=== PATIENT | female | born 1960 | race African-American/Black ===

== ENCOUNTER 2016-10-15 15:34 | Inpatient (IN) | payer MEDICARE ==
[~2016-10-15] VITALS: Ht 167.6 cm; Wt 73.6 kg
[~2016-10-15 15:34] MED LIST: ATARAX 25 MG TA25 MG PO; CARAFATE1 G PO; DURAGESIC1 PATCH .7 TRANSDERM; FLOVENT HFA 11012 GM INH; GLEEVEC400 MG PO; HYDROCHLOROTH12.5 M1 PO; HYDROCODONE-APA1 TAB PO; JANUVIA25 MG PO; JANUVIA50 MG PO; LYRICA150 MG PO; MUCUS RELIEF400 MG PO; NEURONTIN 300300 MG PO; OMEPRAZOLE20 M1 PO; OXYCONTIN10 MG PO; POTASSIUM99 M1 PO; PROAIR HFA8.5 GM INH; SINGULAIR10 MG PO; TESSALON PERLE100 MG PO; TRAZODONE HCL50 MG PO; VALIUM5 MG PO; ZANAFLEX4 MG PO; ZOFRAN4 MG PO
--- NOTE | 2016-10-15 17:00 | NUR ---
IV STARTED AT THIS TIME IN RIGHT HAND X 3 STICKS. PATIENT TOLERATED WITH SMALL AMOUNT OF PAIN. FAMILY AT BEDSIDE. CALL LIGHT WITHIN REACH.
[2016-10-15 17:57] VITALS: BP 90/45; Ht 167.6 cm; Wt 73.6 kg
--- NOTE | 2016-10-15 18:45 | NUR ---
PATIENT IN BED WITH NO COMPLAINTS. WAITING FOR BLOOD FROM BLD BANK. IV INTACT. FAMILY AT BEDSIDE. CALL LIGHT WITHIN REACH.
[2016-10-15 22:25] VITALS: BP 88/54
[2016-10-15 22:45] VITALS: BP 85/61
[2016-10-15 23:00] VITALS: BP 88/53
[2016-10-15 23:15] VITALS: BP 89/57
[2016-10-15 23:30] VITALS: BP 90/61
--- NOTE | 2016-10-15 23:51 | NUR ---
ASSESSED AT THE BEGINNING OF THE SHIFT. PT IS ALERT AND ORIENTED, ABLE TO VERBALIZE NEEDS. HER FAMILY CAME TO VISIT HER FOR A SHORT TIME AND THEN WE WERE ABLE TO PREMEDICATE HER FOR BLOOD TRANSFUSION WITH SOME OF HER HOME MEDS WHICH THE MD HAD OKED TO HELP HER REST IN THE HOSPITAL. SHE IS ABLE TO GET UP TO THE BATHROOM WITH ASSIST AND OF THIS TIME HER TRANSFUSION HAS GONE WELL WITH NO SIGNS OF REACTION. SHE IS RUNNING A LOW BP BUT STATES IT WAS EVEN LOWER IN THE DOCTORS OFFFICE. THE BED IS LOW, RIALS UP X'S 2 WITH THE CALL LIGHT AT HAND.
[2016-10-16] VITALS (12 sets, daily range): BP systolic 85–92; BP diastolic 53–69
[2016-10-16 08:43] LABS: BASOPHILS 0.8 % (0.0-2.0); EOSINOPHILS 1.6 % (0-7); HEMATOCRIT 36.9 % (36.0-48.0); HEMOGLOBIN 12.5 g/dL (12-16); IMMATURE GRANULOCYTES 0.4 % (0-5); LYMPHOCYTES 25.8 % (15-50); MCH 33.1 pg (26.0-34.0); MCHC 33.9 g/dL (31.0-37.0); MCV 97.6 fL (80.0-100.0); MONOCYTES 7.4 % (2-11); PLATELET COUNT 213 10x3/uL (130-400); RBC 3.78 10x6/uL (4.00-5.40); RDW 22.9 % (11.5-14.5); WBC 5.1 10x3/uL (4.8-10.8)
[2016-10-16 08:56] LABS: ALBUMIN 1.2 g/dL (3.4-5.0); BILIRUBIN - TOTAL 0.36 mg/dL (0.2-1.3); CALCIUM 7.2 mg/dL (8.5-10.1); CARBON DIOXIDE 28.3 mmol/L (21.0-32.0); CREATININE - SERUM 2.2 mg/dL (0.6-1.3); PROTEIN - SERUM 3.7 g/dL (6.4-8.2)
[2016-10-16 08:57] LABS: ANION GAP 9.7 mmol/L (8-16)
--- NOTE | 2016-10-16 09:13 | NUR ---
SPOKE WITH PHYSICIAN ABOUT HOME MEDS. AND PATIENT BEING DISCHARGED. STATED HE WOULD COME SPEAK WITH HER. PATIENT VERBALIZED UNDERSTANDING.
--- NOTE | 2016-10-16 11:31 | NUR ---
PATIENT IV REMOVED WITH CATH TIP INTACT. DISCHARGE INSTRUCTIONS GIVEN TO PATIENT. NO QUESTIONS AT THIS TIME. VERBALIZED UNDERSTANDING. AWAITING FAMILY FOR TRANSPORTATION. CALL LIGHT WITHIN REACH.
== END 2016-10-16 13:42 | disposition home or self-care (01) | DRG 812 ==
LOC: D.MS 15:34
PROVIDERS: ADMIT Legal Medicine
DX: D64.9 Anemia, unspecified (principal); C78.02 Secondary malignant neoplasm of left lung; C78.01 Secondary malignant neoplasm of right lung; R60.1 Generalized edema; C11.1 Malignant neoplasm of posterior wall of nasopharynx

== ENCOUNTER → 2017-04-21 10:12 | Outpatient (CLI) | payer MEDICARE ==
[2016-10-15 17:57] VITALS: BMI 26.2
== END | disposition home or self-care (01) ==
LOC: D.CT 02-10 14:30
DX: C11.9 Malignant neoplasm of nasopharynx, unspecified (principal)

== ENCOUNTER → 2017-09-27 13:24 | Outpatient (CLI) | payer MEDICARE ==
[2016-10-15 17:57] VITALS: BMI 26.2
== END | disposition home or self-care (01) ==
LOC: D.CT 08:00
DX: C11.9 Malignant neoplasm of nasopharynx, unspecified (principal)

== ENCOUNTER 2017-12-07 05:49 | Outpatient (CLI) | payer MEDICARE ==
[~2017-12-07] VITALS: Ht 167.6 cm; Wt 71.4 kg
[2017-12-07 06:13] LABS: EOSINOPHILS 6.2 % (0-7); HEMATOCRIT 42.2 % (36.0-48.0); HEMOGLOBIN 13.7 g/dL (12-16); IMMATURE GRANULOCYTES 0.3 % (0-5); LYMPHOCYTES 24.3 % (15-50); MCH 30.5 pg (26.0-34.0); MCHC 32.5 g/dL (31.0-37.0); MEAN PLATELET VOLUME 12.3 fL (7.4-10.4); MONOCYTES 9.9 % (2-11); NEUTROPHILS 58.3 % (40-80); PLATELET COUNT 229 10x3/uL (130-400); RBC 4.49 10x6/uL (4.00-5.40); RDW 13.3 % (11.5-14.5); WBC 6.2 10x3/uL (4.8-10.8)
[2017-12-07 06:42] LABS: APTT 29.7 SECONDS (22.8-39.4); INR 1.05 (0.85-1.17); PROTIME 13.3 SECONDS (11.6-15.0)
[2017-12-07 07:13] VITALS: BP 162/87; Ht 167.6 cm; Wt 71.4 kg
[2017-12-07 07:31] LABS: ANION GAP 10.8 mmol/L (8-16); CALCIUM 9.7 mg/dL (8.5-10.1); CARBON DIOXIDE 29.3 mmol/L (21.0-32.0); CREATININE - SERUM 1.8 mg/dL (0.6-1.3); POTASSIUM - SERUM 4.1 mmol/L (3.5-5.1)
== END 2017-12-07 10:00 | disposition home or self-care (01) ==
LOC: D.SP 05:49 → D.CT 08:00 → D.SP 08:00 → D.CT 12-08 13:00
PROVIDERS: Radiology Diagnostic Radiology
DX: K82.8 Other specified diseases of gallbladder (principal); K21.9 Gastro-esophageal reflux disease without esophagitis; C34.90 Malignant neoplasm of unspecified part of unspecified bronchus or lung; Z01.810 Encounter for preprocedural cardiovascular examination; Z01.812 Encounter for preprocedural laboratory examination; Z01.811 Encounter for preprocedural respiratory examination; Z53.9 Procedure and treatment not carried out, unspecified reason

== ENCOUNTER 2017-12-23 09:44 | Outpatient (CLI) | payer MEDICARE ==
[~2017-12-23] VITALS: Ht 167.6 cm; Wt 72.7 kg
[2017-12-23 10:38] LABS: BASOPHILS 0.7 % (0-2); HEMATOCRIT 40.5 % (36.0-48.0); HEMOGLOBIN 13.1 g/dL (12-16); IMMATURE GRANULOCYTES 0.2 % (0-5); LYMPHOCYTES 26.6 % (15-50); MCH 30.8 pg (26.0-34.0); MCHC 32.3 g/dL (31.0-37.0); MCV 95.3 fL (80.0-100.0); MEAN PLATELET VOLUME 11.5 fL (7.4-10.4); MONOCYTES 10.1 % (2-11); NEUTROPHILS 53.4 % (40-80); PLATELET COUNT 204 10x3/uL (130-400); RBC 4.25 10x6/uL (4.00-5.40); RDW 13.7 % (11.5-14.5); WBC 5.5 10x3/uL (4.8-10.8)
[2017-12-23 10:50] LABS: APTT 30.8 SECONDS (22.8-39.4); INR 1.11 (0.85-1.17); PROTIME 13.9 SECONDS (11.6-15.0)
[2017-12-23 10:56] LABS: ANION GAP 10.8 mmol/L (8-16); CALCIUM 9.7 mg/dL (8.5-10.1); CARBON DIOXIDE 31.2 mmol/L (21.0-32.0); CREATININE - SERUM 1.7 mg/dL (0.6-1.3)
[2017-12-23] MEDS ORDERED: LYRICA100 MG PO (11:32)
[2017-12-23 11:35] VITALS: BP 183/98; Ht 167.6 cm; Wt 72.7 kg
== END 2017-12-23 13:50 | disposition home or self-care (01) ==
LOC: D.SP 09:44 → D.CT 11:00 → D.SP 13:50
PROVIDERS: General Practice
DX: M48.8X4 Other specified spondylopathies, thoracic region (principal); Z85.118 Personal history of other malignant neoplasm of bronchus and lung; Z85.22 Personal history of malignant neoplasm of nasal cavities, middle ear, and accessory sinuses

== ENCOUNTER 2018-12-18 15:25 | Inpatient (IN) | payer MEDICARE, MEDICAID ==
[~2018-12-18 15:25] MED LIST changes: +LYRICA100 MG PO
[2018-12-18 17:17] LABS: BASOPHILS 0.9 % (0-2); EOSINOPHILS 3.5 % (0-7); HEMATOCRIT 32.1 % (36.0-48.0); HEMOGLOBIN 10.5 g/dL (12-16); IMMATURE GRANULOCYTES 0.2 % (0-5); LYMPHOCYTES 15.3 % (15-50); MCH 33.7 pg (26.0-34.0); MCHC 32.7 g/dL (31.0-37.0); MCV 102.9 fL (80.0-100.0); MEAN PLATELET VOLUME 10.9 fL (7.4-10.4); MONOCYTES 7.2 % (2-11); NEUTROPHILS 72.9 % (40-80); PLATELET COUNT 243 10x3/uL (130-400); RBC 3.12 10x6/uL (4.00-5.40); RDW 15.4 % (11.5-14.5); WBC 4.6 10x3/uL (4.8-10.8)
--- NOTE | 2018-12-18 17:30 | NUR ---
PATIENT AWAKE AND ALERT, COLOR IS PALE. RESPIRATIONS EVEN AND UNLABORED. C/O OF PAIN IN THE RIGHT RIB AREA. STATES THE PAIN IS WORSE WITH MOVEMENT AND TOUCH. UPDATED ON PLAN OF CARE AND DELAYS IN CARE. WILL CONTINUE TO MONITOR.
[2018-12-18 17:31] LABS: ALBUMIN 2.9 g/dL (3.4-5.0); ALKALINE PHOSPHATASE 74 U/L (46-116); ALT (SGPT) 16 U/L (10-68); BILIRUBIN - TOTAL 0.49 mg/dL (0.2-1.3); CALC OSMOLALITY 281 mosm/kg (275-300); CALCIUM 8.5 mg/dL (8.5-10.1); CARBON DIOXIDE 25.9 mmol/L (21.0-32.0); CHLORIDE - SERUM 106 mmol/L (98-107); CREATININE - SERUM 1.7 mg/dL (0.6-1.3); GLUCOSE 91 mg/dL (74-106); POTASSIUM - SERUM 4.2 mmol/L (3.5-5.1); PROTEIN - SERUM 6.5 g/dL (6.4-8.2); SODIUM 141 mmol/L (136-145); UREA NITROGEN 14 mg/dL (7-18); eGFR NON AFRICAN AMERICAN 33 mL/min (90-120)
[2018-12-18 17:42] LABS: CKMB 2.7 U/L (0.0-3.6); CREATINE KINASE 402 UL (21-215); MAGNESIUM - SERUM 1.6 mg/dL (1.8-2.4); PRO BNP 396 pg/mL (0-125)
[2018-12-18 17:44] LABS: TROPONIN-I < 0.017 ng/mL (0.000-0.060)
--- NOTE | 2018-12-18 18:30 | NUR ---
PATIENT AWAKE AND ALERT. BLANKET GIVEN. NO OTHER NEEDS NOTED. UPDATED ON PLAN OF CARE AND DELAYS IN CARE. WILL CONTINUE TO MONITOR.
[2018-12-18 18:41] VITALS: BP 174/92
--- NOTE | 2018-12-18 19:21 | NUR ---
PT ALERT. FAMILY AT BEDSIDE. STATES "DOING OK RIGHT NOW".
--- NOTE | 2018-12-18 19:40 | NUR ---
UP TO BEDSIDE COMMODE. VOIDED WITHOUT DIFFICULTY. STATES HASN'T HAD AN UPDRAFT SINCE THIS MORNING. RESPIRATORY THERAPY PAGED.
--- NOTE | 2018-12-18 19:48 | NUR ---
PT'S PULSE OX 86%. STATES USUALLY WEARS OXYGEN PRN AT HOME. O2 AT 2LN/C APPLIED.
[2018-12-18 19:51] VITALS: BP 169/87
--- NOTE | 2018-12-18 19:57 | NUR ---
pt's pulse ox up to 96-97 on oxygen 2l.
--- NOTE | 2018-12-18 20:27 | NUR ---
ARRIVED FROM ER VIA . PT CO BEING VERY COLD. WARM BLANKET APPLIED. O2 ON AT 2L. NC. SEE ASSESSMENT FOR FURTHER EVAL.
[2018-12-18 20:29] VITALS: BP 153/69; BMI 24.1
--- NOTE | 2018-12-18 23:46 | NUR ---
EVENING ROUNDS COMPLETED. PT SITTING UP IN BED WITH EYES OPEN, RR EVEN AND UNLABORED. NIGHT TIME MEDICATIONS ADMINISTERED WITHOUT ISSUE. NO S/S OF DISTRESS NOTED. PT STATES PAIN IS UNDER CONTROL AT THIS TIME. CALL LIGHT IN REACH. WILL CTM.
[2018-12-19] VITALS: BP 158/78
[2018-12-19 04:00] VITALS: BP 135/70
--- NOTE | 2018-12-19 04:00 | NUR ---
I have reviewed this patient and I concur with the Shift Assessment completed by the Licensed Practical Nurse today this shift.
[2018-12-19 05:38] LABS: BASOPHILS 0.4 % (0-2); EOSINOPHILS 4.4 % (0-7); HEMATOCRIT 33.6 % (36.0-48.0); HEMOGLOBIN 11.1 g/dL (12-16); IMMATURE GRANULOCYTES 0.2 % (0-5); LYMPHOCYTES 15.6 % (15-50); MCH 33.6 pg (26.0-34.0); MCV 101.8 fL (80.0-100.0); MEAN PLATELET VOLUME 11.4 fL (7.4-10.4); MONOCYTES 8.2 % (2-11); NEUTROPHILS 71.2 % (40-80); PLATELET COUNT 281 10x3/uL (130-400); RDW 15.6 % (11.5-14.5); WBC 5.6 10x3/uL (4.8-10.8)
[2018-12-19 06:03] LABS: ANION GAP 12.4 mmol/L (8-16); CALCIUM 8.6 mg/dL (8.5-10.1); CARBON DIOXIDE 27.8 mmol/L (21.0-32.0); CREATININE - SERUM 1.7 mg/dL (0.6-1.3); POTASSIUM - SERUM 4.2 mmol/L (3.5-5.1)
[2018-12-19 08:00] VITALS: BP 121/66
[2018-12-19 12:12] VITALS: BP 116/64
[2018-12-19 13:13] VITALS: BMI 24.0
[2018-12-19 16:24] VITALS: BP 112/61
[2018-12-19 20:00] VITALS: BP 111/48
--- NOTE | 2018-12-19 20:00 | NUR ---
EVENING ROUNDS COMPLETED. VSS, AAOX4, NO S/S OF RESP DISTRESS. PT C/O FEELING COLD. TURNED PT ROOM TEMP UP AND PROVIDED WARM BLANKET. PT DENIES ANY FURTHER NEED AT THIS TIME. WILL CPOC. CL WITHIN REACH, BED IN LOW, SR UP X2.
[2018-12-20 04:00] VITALS: BP 116/46
[2018-12-20 06:31] LABS: BASOPHILS 0.4 % (0-2); EOSINOPHILS 2.1 % (0-7); HEMATOCRIT 28.2 % (36.0-48.0); HEMOGLOBIN 9.2 g/dL (12-16); IMMATURE GRANULOCYTES 0.2 % (0-5); LYMPHOCYTES 9.6 % (15-50); MCH 33.6 pg (26.0-34.0); MCHC 32.6 g/dL (31.0-37.0); MCV 102.9 fL (80.0-100.0); MEAN PLATELET VOLUME 11.4 fL (7.4-10.4); MONOCYTES 8.3 % (2-11); NEUTROPHILS 79.4 % (40-80); PLATELET COUNT 240 10x3/uL (130-400); RBC 2.74 10x6/uL (4.00-5.40); RDW 15.5 % (11.5-14.5); WBC 5.3 10x3/uL (4.8-10.8)
[2018-12-20 07:06] LABS: ANION GAP 11.2 mmol/L (8-16); CALCIUM 8.7 mg/dL (8.5-10.1); CARBON DIOXIDE 27.6 mmol/L (21.0-32.0); CREATININE - SERUM 1.7 mg/dL (0.6-1.3); POTASSIUM - SERUM 3.8 mmol/L (3.5-5.1); THYROID STIMULATING HORMONE 2.04 uIU/mL (0.36-3.74)
[2018-12-20 08:15] VITALS: BP 122/60
[2018-12-20 11:48] VITALS: BP 111/60
[2018-12-20 15:09] VITALS: BP 95/54
--- NOTE | 2018-12-20 19:22 | NUR ---
PT RESTING IN BED. PT IS AAO, UP AD ABDON. GAIT STEADY. ASKING FOR A HEAT PAD AND PT RECEIVED. PT HAS NO S/S OF DISTRESS. 2L O2 NC, BEDLOW AND CALL LIGHT IN REACH. WILL CPOC
[2018-12-20 20:00] VITALS: BP 113/66
--- NOTE | 2018-12-20 21:51 | NUR ---
NIGHT MEDICATIONS GIVEN. PT ASKING ABOUT MUCINEX. WILL CHECK ORDERS. PT COMPLAINS OF PAIN IN LEFT SIDE. STATES THE HEAT PACK HELPED BUT NEEDS A NORCO. NORCO GIVEN. PT DENIES ANY OTHER NEEDS. NO S/S OF DISTRESS. WILL CPOC
--- NOTE | 2018-12-21 02:40 | NUR ---
PT COMPLAINS OF PAIN ON INNER EYE AND OUTER EYE. STATES IT IS TENDER TO TOUCH. REQUEST NORCO FOR 10/10 PAIN. NORCO GIVEN. PT DENIES ANY OTHER NEEDS. WILL CPOC
--- NOTE | 2018-12-21 02:45 | NUR ---
NURSE DROPPED TORICO ON FLOOR. WASTED MEDICATION AND PULLED A NEW ONE.
[2018-12-21 04:00] VITALS: BP 116/70
--- NOTE | 2018-12-21 07:06 | NUR ---
PT SITTING UP GETTING BREATHING TREATMENT. PT ASKING FOR NORCO. NORCO RECEIVED. PT HAS NO S/S OF DISTRESS. BEDLOW AND CALL LIGHT IN REACH. WILL CPOC
--- NOTE | 2018-12-21 07:27 | NUR ---
ALERT AND ORIENTED X4. SITTING UP IN BED. EXPLAIN PLAN TO TRANSFER TO [facility] PER CHOCOLATE FINISHER. PATIENT STATES, "I'M NOT TRANSFERING ANYWHERE UNTIL I GO HOME." NOTIFY FITO CHOCOLATE FINISHER. DENIES ANY NEEDS AT THIS TIME. CONTINUE PLAN OF CARE AND SAFETY PRECAUTIONS.
[2018-12-21 08:39] VITALS: BP 94/48
[2018-12-21 10:07] LABS: BASOPHILS 0.6 % (0-2); EOSINOPHILS 3.1 % (0-7); HEMATOCRIT 27.7 % (36.0-48.0); HEMOGLOBIN 8.9 g/dL (12-16); LYMPHOCYTES 20.8 % (15-50); MCH 33.2 pg (26.0-34.0); MCHC 32.1 g/dL (31.0-37.0); MCV 103.4 fL (80.0-100.0); MEAN PLATELET VOLUME 10.9 fL (7.4-10.4); MONOCYTES 14.4 % (2-11); NEUTROPHILS 61.1 % (40-80); RBC 2.68 10x6/uL (4.00-5.40); RDW 15.5 % (11.5-14.5)
[2018-12-21 10:09] LABS: PLATELET COUNT 180 10x3/uL (130-400); WBC 3.3 10x3/uL (4.8-10.8)
[2018-12-21 10:15] LABS: ANION GAP 10.5 mmol/L (8-16); CALCIUM 8.3 mg/dL (8.5-10.1); CARBON DIOXIDE 30.1 mmol/L (21.0-32.0); CREATININE - SERUM 1.7 mg/dL (0.6-1.3); POTASSIUM - SERUM 3.6 mmol/L (3.5-5.1)
[2018-12-21 11:40] VITALS: BP 99/54
--- NOTE | 2018-12-21 14:30 | NUR ---
Nutrition follow-up: Diet: Regular PO intake ~60% average of last 6 meals labs reviewed Wt: 149# RDN following.
--- NOTE | 2018-12-21 16:49 | NUR ---
SITTING UP IN BED. ALERT AND ORIENTED X4. DENIES PAIN OR SOB. REPORTS FEELING SORE WHEN STRETCHING. ENCOURAGE GETTING OUT OF BED MORE. DENIES ANY NEEDS AT THIS TIME. FRESH ICE WATER PROVIDED. CONTINUE PLAN OF CARE AND SAFETY PRECAUTIONS.
--- NOTE | 2018-12-21 18:19 | NUR ---
ALERT AND ORIENTED X4. UP OOB TAKING SHOWER. LINEN CHANGE COMPLETE. DENIES ANY NEEDS. CONTINUE PLAN OF CARE AND SAFETY PRECAUTIONS.
[2018-12-21 18:36] VITALS: BP 94/51
--- NOTE | 2018-12-21 19:20 | NUR ---
ANSWERED PATIENT CALL LIGHT. PATIENT ALERT AND ORIENTED. REQUESTED PM MEDICINE AT THIS TIME. PT STATES SHE IS TIRED AND READY TO GO TO BED. PT WEARING 2L O2. RIGHT HAND IV THAT IS CURRENTLY SALINE LOCKED. COMPLAINS OF PAIN IN BACK. PT REQUESTS PAIN MEDICINE AT THIS TIME. NO OTHER NEEDS DISCUSSED AT THIS TIME. PATIENT HAS CALL LIGHT IN HAND.
[2018-12-21 20:00] VITALS: BP 110/56
[2018-12-22 04:00] VITALS: BP 112/60
--- NOTE | 2018-12-22 04:04 | NUR ---
I have reviewed this patient and I concur with the Shift Assessment completed by the Licensed Practical Nurse today this shift.
[2018-12-22 06:44] LABS: BASOPHILS 0 % (0-2); EOSINOPHILS 3.4 % (0-7); HEMATOCRIT 27.8 % (36.0-48.0); HEMOGLOBIN 9.1 g/dL (12-16); LYMPHOCYTES 27.6 % (15-50); MCH 33.5 pg (26.0-34.0); MCHC 32.7 g/dL (31.0-37.0); MCV 102.2 fL (80.0-100.0); MEAN PLATELET VOLUME 11.1 fL (7.4-10.4); MONOCYTES 14.2 % (2-11); NEUTROPHILS 54.8 % (40-80); RBC 2.72 10x6/uL (4.00-5.40); RDW 15.4 % (11.5-14.5); WBC 3.2 10x3/uL (4.8-10.8)
[2018-12-22 06:54] LABS: PLATELET COUNT 223 10x3/uL (130-400)
[2018-12-22 07:15] LABS: ANION GAP 9.2 mmol/L (8-16); CALCIUM 8.4 mg/dL (8.5-10.1); CARBON DIOXIDE 29.5 mmol/L (21.0-32.0); CREATININE - SERUM 1.6 mg/dL (0.6-1.3); POTASSIUM - SERUM 3.7 mmol/L (3.5-5.1)
[2018-12-22] MEDS ORDERED: LEVOFLOXAC500 MG/100 PO (07:59)
--- NOTE | 2018-12-22 08:00 | NUR ---
RESUMING PT CARE, PT IS SITTING UP IN BED ALERT AND ORIENTED X3. CALL LIGHT IN REACH, WILL CONTINUE TO MONITOR AND FOLLOW PLAN OF CARE.
[2018-12-22 08:10] VITALS: BP 122/69
--- NOTE | 2018-12-22 09:10 | NUR ---
PT IS BEING D/C TODAY, LAST DOSE OF ABX WAS TO BE GIVEN BUT PT'S IV INFILTRATED, PT REFUSES ANOTHER IV. SPOKE WITH SONYA FLORES AND HE SAID IT IS FINE TO NOT GIVE THIS MEDICATION.
[2018-12-22 11:37] VITALS: BP 128/72
--- NOTE | 2018-12-22 13:18 | MORECARE ---
CASE MANAGEMENT DISCHARGE SUMMARY PATIENT: JACKIE DOUGLAS UNIT: [id number] ADM DATE: 12/18/18 AGE: 58 : 60 SEX: F ROOM/BED: D.1667 AUTHOR: LYNNE,DOC PHYSICIAN: REFERRING PHYSICIAN: FILIPE MCCLELLAND MD DATE OF SERVICE: 12/22/18 Discharge Plan Patient Name: JACKIE DOUGLAS Facility: [facility]:[place] : 1960 Planned Disposition: Home Anticipated Discharge Date: 12/22/18 Discharge Date: Expected LOS: 4 Initial Reviewer: [email or web address] Initial Review Date: 12/22/2018 Generated: 12/22/18 2:18 pm Comments DCP- Discharge Planning Updated by [email or web address]: Isidro Lion on 12/22/18 12:[address] Patient Name: JACKIE DOUGLAS Encounter No: [id number] : 1960 Primary Insurance: [facility] MEDICARE SOLUTIONS Anticipated DC Date: 12-22-2018 Planned Disposition: Home DISCHARGE PLANNING NOTE: CM MET WITH PT IN ROOM TO DISCUSS DISCHARGE PLANNING AND NEEDS. PT REPORTS LIVING AT HOME INDEPENDENTLY WITH HER MOTHER. PT HAS HOME AND PORTABLE OXYGEN WELL NEBULIZER FROM [facility]. PT HAS NO OUTSIDE SERVICES ASSISTING IN THE HOME. CM DISCUSSED AVAILABILITY OF HOME HEALTH, REHAB SERVICES AND MEDICAL EQUIPMENT. PT DENIES DISCHARGE NEEDS, REPORTS HER SPOUSE WILL PICK HER UP FOR DISCHARGE HOME. IMPORTANT MESSAGE FROM MEDICARE PROVIDED AND EXPLAINED. ANTWAN Simmons DCPIA - Discharge Planning Initial Assessment Updated by [id number]: Isidro Lion on 12/22/18 1:13 pm * Is the patient Alert and Oriented? Yes * How many steps to enter\exit or inside your home? NONE * PCP DR. SMITH IN [place] * Pharmacy [facility] IN [place] * Preadmission Environment Home with Family * ADLs Independent * Equipment Nebulizer Oxygen * Other Equipment HOME AND PORTABLE OXYGEN [facility]. * List name and contact numbers for known caregivers / representatives who currently or will assist patient after discharge: KISHOR DOUGLAS, SPOUSE, * Verbal permission to speak to the caregivers and representatives has been obtained from the patient. N/A * Community resources currently utilized None * Please name any agencies selected above. NONE * Additional services required to return to the preadmission environment? No * Can the patient safely return to the preadmission environment? Yes * Has this patient been hospitalized within the prior 30 days at any hospital? No Patient Name: JACKIE DOUGLAS Page [phone] at 1318 All edits/amendments must be made on the electronic document DICTATION DATE: 12/22/181317 EXECUTIVE DIRECTOR GLOBAL BRAND MARKETING: CYDNEY 12/22/188 RPT#: [id number] DC DATE: STATUS: ADM IN [facility] [address] [place] [address] END OF REPORT
--- NOTE | 2018-12-22 14:21 | NUR ---
D/C INSTRUCTIONS GIVEN TO PT, IV REMOVED FROM RIGHT HAND. PT TAKEN TO CAR VIA WHEELCHAIR.
== END 2018-12-22 14:32 | disposition home or self-care (01) | DRG 146 ==
LOC: D.ER 15:25 → D.M2 19:29
PROVIDERS: Family Medicine; ADMIT Emergency Medicine; ATTEND Emergency Medicine
DX: C11.9 Malignant neoplasm of nasopharynx, unspecified (principal); J18.9 Pneumonia, unspecified organism; J90 Pleural effusion, not elsewhere classified; J91.0 Malignant pleural effusion; R07.9 Chest pain, unspecified; D53.9 Nutritional anemia, unspecified; K59.00 Constipation, unspecified

== ENCOUNTER 2019-01-24 23:23 | Emergency (ER) | payer MEDICARE, MEDICAID ==
[~2019-01-24] VITALS: Ht 167.6 cm; Wt 61.8 kg
[~2019-01-24 23:23] MED LIST changes: +LEVOFLOXAC500 MG/100 PO
[2019-01-24 23:34] VITALS: Ht 167.6 cm; Wt 61.8 kg
[2019-01-25 00:42] LABS: BASOPHILS 0.6 % (0-2); EOSINOPHILS 1.9 % (0-7); HEMATOCRIT 33.6 % (36.0-48.0); HEMOGLOBIN 11.5 g/dL (12-16); LYMPHOCYTES 25.4 % (15-50); MCH 35.5 pg (26.0-34.0); MCHC 34.2 g/dL (31.0-37.0); MCV 103.7 fL (80.0-100.0); MEAN PLATELET VOLUME 11.3 fL (7.4-10.4); MONOCYTES 6.9 % (2-11); NEUTROPHILS 65.2 % (40-80); PLATELET COUNT 230 10x3/uL (130-400); RBC 3.24 10x6/uL (4.00-5.40); RDW 15.7 % (11.5-14.5); WBC 4.7 10x3/uL (4.8-10.8)
[2019-01-25 00:49] LABS: APTT 31.3 SECONDS (22.8-39.4); INR 1.08 (0.85-1.17); PROTIME 13.5 SECONDS (11.6-15.0)
[2019-01-25 00:52] LABS: ALBUMIN 3.2 g/dL (3.4-5.0); ALKALINE PHOSPHATASE 68 U/L (46-116); ALT (SGPT) 17 U/L (10-68); CALC OSMOLALITY 280 mosm/kg (275-300); CALCIUM 8.2 mg/dL (8.5-10.1); CARBON DIOXIDE 24.2 mmol/L (21.0-32.0); CHLORIDE - SERUM 109 mmol/L (98-107); CREATININE - SERUM 1.6 mg/dL (0.6-1.3); POTASSIUM - SERUM 4.4 mmol/L (3.5-5.1); PROTEIN - SERUM 6.9 g/dL (6.4-8.2); SODIUM 141 mmol/L (136-145); UREA NITROGEN 9 mg/dL (7-18); eGFR NON AFRICAN AMERICAN 35 mL/min (90-120)
[2019-01-25 01:03] LABS: GLUCOSE 121 mg/dL (74-106)
[2019-01-25 01:07] LABS: CKMB 2.6 U/L (0.0-3.6); CREATINE KINASE 361 UL (21-215); TROPONIN-I 0.027 ng/mL (0.000-0.060)
[2019-01-25 02:27] LABS: APPEARANCE HAZY (CLEAR); BILIRUBIN NEGATIVE (NEGATIVE); COLOR YELLOW (YELLOW); GLUCOSE 50 mg/dL (NEGATIVE); KETONE SMALL mg/dL (NEGATIVE); NITRITE NEGATIVE (NEGATIVE); PROTEIN 2+ mg/dL (NEGATIVE); UROBILINOGEN NORMAL (NORMAL)
[2019-01-25 02:28] LABS: BACTERIA MODERATE /hpf (NONE SEEN); EPITHELIAL CELLS 0-5 /hpf (0-5); RED CELLS - URINE 0-5 /hpf (0-5)
[2019-01-25 02:42] VITALS: BP 135/74
== END 2019-01-25 02:43 | disposition home or self-care (01) ==
LOC: D.ER 23:23
PROVIDERS: Emergency Medicine
DX: R06.00 Dyspnea, unspecified (principal)

== ENCOUNTER 2019-03-09 21:18 | Observation (INO) | payer MEDICARE, MEDICAID ==
[~2019-03-09] VITALS: Ht 167.6 cm; Wt 63.5 kg
[2019-03-09 22:12] LABS: BASOPHILS 1.5 % (0-2); EOSINOPHILS 3.1 % (0-7); HEMATOCRIT 28.7 % (36.0-48.0); HEMOGLOBIN 9.7 g/dL (12-16); IMMATURE GRANULOCYTES 0.3 % (0-5); LYMPHOCYTES 17.6 % (15-50); MCH 35.7 pg (26.0-34.0); MCHC 33.8 g/dL (31.0-37.0); MCV 105.5 fL (80.0-100.0); MEAN PLATELET VOLUME 11.2 fL (7.4-10.4); MONOCYTES 8.4 % (2-11); NEUTROPHILS 69.1 % (40-80); PLATELET COUNT 192 10x3/uL (130-400); RBC 2.72 10x6/uL (4.00-5.40); RDW 15.4 % (11.5-14.5); WBC 3.9 10x3/uL (4.8-10.8)
[2019-03-09 22:29] LABS: ALBUMIN 2.8 g/dL (3.4-5.0); ALKALINE PHOSPHATASE 62 U/L (46-116); ALT (SGPT) 20 U/L (10-68); BILIRUBIN - TOTAL 0.36 mg/dL (0.2-1.3); CALC OSMOLALITY 282 mosm/kg (275-300); CALCIUM 8.7 mg/dL (8.5-10.1); CHLORIDE - SERUM 106 mmol/L (98-107); CREATININE - SERUM 1.6 mg/dL (0.6-1.3); GLUCOSE 117 mg/dL (74-106); POTASSIUM - SERUM 4.9 mmol/L (3.5-5.1); PROTEIN - SERUM 6.1 g/dL (6.4-8.2); SODIUM 142 mmol/L (136-145); UREA NITROGEN 10 mg/dL (7-18); eGFR NON AFRICAN AMERICAN 35 mL/min (90-120)
[2019-03-09 22:38] LABS: CKMB 2.9 U/L (0.0-3.6); CREATINE KINASE 485 UL (21-215); TROPONIN-I 0.033 ng/mL (0.000-0.060)
[2019-03-10] VITALS (11 sets, daily range): BP systolic 104–172; BP diastolic 50–87; Ht 167.6 cm; Wt 63.5 kg
--- NOTE | 2019-03-10 00:45 | NUR ---
RECEIVED PATIENT FROM MONICA ELAM VIA STRETCHER. PATIENT WALKED TO BED FROM STRETCHER AND WAS EXPERIENCING SOME SHORTNESS OF BREATH. PATIENT O2 WAS 86, 3L O2 VIA NC WAS APPLIED BY MONICA HUNTER. PATIENT C/O BEING COLD, TEMP IN ROOM ADJUSTED. QUICK START, MED REC, ADULT HX, SUICIDE SCREENING COMPLETED. CL IN REACH, BED LOCKED AND LOWERED. WILL CTM.
--- NOTE | 2019-03-10 06:59 | NUR ---
REPORT RECEIVED FROM OCEANOGRAPHY PROFESSOR AND PATIENT CARE ASSUMED. PATIENT LAYING IN BED ON BACK WITH EYES CLOSED AND BREATHING EVENLY. WILL CONTINUE WITH PLAN OF CARE. SR UP X 2 BED IN LOW POSITION AND CALL LIGHT IN REACH.
[2019-03-10 09:55] LABS: BASOPHILS 0.9 % (0-2); HEMOGLOBIN 9.6 g/dL (12-16); IMMATURE GRANULOCYTES 0.3 % (0-5); MCH 35.7 pg (26.0-34.0); MCHC 34.3 g/dL (31.0-37.0); MCV 104.1 fL (80.0-100.0); MONOCYTES 10.3 % (2-11); NEUTROPHILS 59.5 % (40-80); PLATELET COUNT 210 10x3/uL (130-400); RBC 2.69 10x6/uL (4.00-5.40); RDW 15.2 % (11.5-14.5); WBC 3.2 10x3/uL (4.8-10.8)
[2019-03-10 10:04] LABS: ANION GAP 8.5 mmol/L (8-16); CALCIUM 8.1 mg/dL (8.5-10.1); CARBON DIOXIDE 30.6 mmol/L (21.0-32.0); CREATININE - SERUM 1.6 mg/dL (0.6-1.3)
[2019-03-10 10:05] LABS: APTT 29.7 SECONDS (22.8-39.4); INR 1.1 (0.85-1.17); POTASSIUM - SERUM 4.1 mmol/L (3.5-5.1); PROTIME 13.7 SECONDS (11.6-15.0)
--- NOTE | 2019-03-10 19:15 | NUR ---
EVENING ROUNDS MADE, WILL CONTINUE POC. PATIENT IS A/OX4 UP AD ABDON. NO S/S OF DISTRESS NOTED. RR EVEN AND UNLABORED ON ROOM AIR, 3L O2 VIA NC PRN. IV TO RT WRIST, PATENT, SL, DRSG C/D/I. PATIENT REQUESTED SUPPLIES FOR A SPONGE BATH, SUPPLIES GIVEN. DRESSING TO RT FLANK SOILDED, DRSG CHANGED, PRESSURE DRESSING WITH MEPILEX APPLIED. PATIENT DENIES FURTHER NEEDS AT THIS TIME. CL IN REACH, BED LOCKED AND LOWERED. WILL CTM.
--- NOTE | 2019-03-11 00:31 | NUR ---
I have reviewed this patient and I concur with the Shift Assessment completed by the Licensed Practical Nurse today this shift.
[2019-03-11 00:46] VITALS: BP 125/70
--- NOTE | 2019-03-11 05:40 | NUR ---
PATIENT C/O PAIN, PRN NORCO GIVEN. PATIENT DENIES FURTHER NEEDS. CL IN REACH, WILL CTM.
[2019-03-11 06:57] LABS: BASOPHILS 1.1 % (0-2); EOSINOPHILS 3.6 % (0-7); HEMATOCRIT 28.2 % (36.0-48.0); HEMOGLOBIN 9.4 g/dL (12-16); LYMPHOCYTES 23.4 % (15-50); MCH 35.2 pg (26.0-34.0); MCHC 33.3 g/dL (31.0-37.0); MCV 105.6 fL (80.0-100.0); MEAN PLATELET VOLUME 11.4 fL (7.4-10.4); MONOCYTES 12.4 % (2-11); NEUTROPHILS 59.5 % (40-80); PLATELET COUNT 223 10x3/uL (130-400); RBC 2.67 10x6/uL (4.00-5.40); RDW 15.3 % (11.5-14.5); WBC 3.6 10x3/uL (4.8-10.8)
[2019-03-11 07:17] LABS: ANION GAP 9.9 mmol/L (8-16); CALCIUM 8.3 mg/dL (8.5-10.1); CARBON DIOXIDE 29.3 mmol/L (21.0-32.0); CREATININE - SERUM 1.7 mg/dL (0.6-1.3); POTASSIUM - SERUM 4.2 mmol/L (3.5-5.1)
--- NOTE | 2019-03-11 07:53 | NUR ---
PT SITTING UP RIGHT IN BED EATING BREAKFAST. REQUESTED COFFEE MATE FOR COFFEE, PROVIDED PROMPTLY. PT HAS RIGHT WRIST SALINE LOCKED IV. 3L OF OXYGEN VIA NASAL CANNULA PRN. POST THORACENTESIS 2 DAYS. DENIES ANY NEEDS AT THIS TIME. WILL CTM.
--- NOTE | 2019-03-11 08:24 | NUR ---
NO MEDICATIONS GIVEN AT THIS TIME, PT ADMINISTERED OWN MEDICATIONS FROM HOME.
--- NOTE | 2019-03-11 10:44 | NUR ---
PT RESTING COMFORTABLY IN BED WITH EYES CLOSED UPON ENTERING, EASILY AROUSES TO VOICE. DENIES ANY NEEDS AT THIS TIME. WILL CTM.
--- NOTE | 2019-03-11 11:10 | MORECARE ---
CASE MANAGEMENT DISCHARGE SUMMARY PATIENT: JACKIE DOUGLAS UNIT: [id number] ADM DATE: 03/09/19 AGE: 58 : 60 SEX: F ROOM/BED: D.1208 AUTHOR: DANIEL BATISTA PHYSICIAN: REFERRING PHYSICIAN: SUZIE BAUTISTA MD DATE OF SERVICE: 03/11/19 Discharge Plan Patient Name: JACKIE DOUGLAS Facility: [facility]:[place] : 1960 Planned Disposition: Home Anticipated Discharge Date: 03/11/19 Discharge Date: Expected LOS: 2 Initial Reviewer: [email or web address] Initial Review Date: 03/10/2019 Generated: 03/11/19 12:10 pm DCP- Discharge Planning Updated by [email or web address]: Sherri Sierra on 03/10/19 2:[address] CM called Carlton SHER regarding D/C plans. DONTAE stated that patient isn't meeting inpatient criteria and was checking to see if the plan was to discharge this evening post thoracentesis. Mario stated that he planned to monitor overnight and discharge in am. CM will send records to EHR to see if patient meets for INPT. External Providers External Provider: OTHER-OTHER Next Contact Date: Service Request Date: Service Type: Resolution: Reviewer: Comments: Patient Name: JACKIE DOUGLAS Page [phone] at 1110 All edits/amendments must be made on the electronic document DICTATION DATE: 03/11/19 111 SUPERVISOR PROP MAKING: DM 03/11/19 1110 RPT#: [id number] DC DATE: STATUS: ADM IN [facility] [address] [place] [address] END OF REPORT
--- NOTE | 2019-03-11 11:17 | MORECARE ---
CASE MANAGEMENT DISCHARGE SUMMARY PATIENT: JACKIE DOUGLAS UNIT: [id number] ADM DATE: 03/09/19 AGE: 58 : 60 SEX: F ROOM/BED: D.1208 AUTHOR: DANIEL BATISTA PHYSICIAN: REFERRING PHYSICIAN: SUZIE BAUTISTA MD DATE OF SERVICE: 03/11/19 Discharge Plan Patient Name: JACKIE DOUGLAS Facility: [facility]:[place] : 1960 Planned Disposition: Home Anticipated Discharge Date: 03/11/19 Discharge Date: Expected LOS: 2 Initial Reviewer: [email or web address] Initial Review Date: 03/10/2019 Generated: 03/11/19 12:17 pm Comments DCP- Discharge Planning Updated by [email or web address]: Diandra Ariza on 03/11/19 10:[address] PATIENT FOR DISCHARGE TO HOME TODAY. SHE IS PRESENTLY ON NASAL OXYGEN AT 3/L. SHE DOES HAVE PORTABLE AND STATIONARY OXYGEN UNITS AT HOME. DCP- Discharge Planning Updated by [email or web address]: Sherri Sierra on 03/10/19 2:[address] CM called Carlton SHER regarding D/C plans. DONTAE stated that patient isn't meeting inpatient criteria and was checking to see if the plan was to discharge this evening post thoracentesis. Mario stated that he planned to monitor overnight and discharge in am. CM will send records to EHR to see if patient meets for INPT. Last DP export: 03/11/19 10:10 am Patient Name: JACKIE DOUGLAS Page [phone] at 1117 All edits/amendments must be made on the electronic document DICTATION DATE: 03/11/19 1117 CUSTOMER CONTACT REPRESENTATIVE: CYDNEY 03/11/19 1117 RPT#: [id number] DC DATE: STATUS: ADM IN [facility] [address] [place] [address] END OF REPORT
--- NOTE | 2019-03-11 13:28 | NUR ---
DC PT IV FROM RIGHT WRIST, CATHETER TIP INTACT. TOLERATED WELL. PT SIGNED ALL DISCHARGE PAPERS AND DENIES ANY FURTHER NEEDS FROM STAFF. AWAITING RIDE FROM [place]. WILL CTM.
--- NOTE | 2019-03-11 14:38 | NUR ---
ESCORTED PT TO FRONT OF BUILDING TO VEHICLE VIA WHEELCHAIR.
--- NOTE | 2019-03-13 08:50 | MORECARE ---
CASE MANAGEMENT DISCHARGE SUMMARY PATIENT: JACKIE DOUGLAS UNIT: [id number] ADM DATE: 03/09/19 AGE: 58 : 60 SEX: F ROOM/BED: D.1208 AUTHOR: DANIEL BATISTA PHYSICIAN: REFERRING PHYSICIAN: SUZIE BAUTISTA MD DATE OF SERVICE: 03/13/19 Discharge Plan Patient Name: JACKIE DOUGLAS Facility: [facility]:[place] : 1960 Planned Disposition: Home Anticipated Discharge Date: 03/11/19 Discharge Date: 03/11/2019 Expected LOS: 2 Initial Reviewer: [email or web address] Initial Review Date: 03/10/2019 Generated: 03/13/19 9:49 am Comments DCP- Discharge Planning Updated by [email or web address]: Diandra Ariza on 03/11/19 10:[address] PATIENT FOR DISCHARGE TO HOME TODAY. SHE IS PRESENTLY ON NASAL OXYGEN AT 3/L. SHE DOES HAVE PORTABLE AND STATIONARY OXYGEN UNITS AT HOME. DCP- Discharge Planning Updated by [id number]: Sherri Sierra on 03/10/19 2:[address] CM called Carlton SHER regarding D/C plans. DONTAE stated that patient isn't meeting inpatient criteria and was checking to see if the plan was to discharge this evening post thoracentesis. Mario stated that he planned to monitor overnight and discharge in am. DONTAE will send records to EHR to see if patient meets for INPT. Coverage Notice Reviewer: [email or web address] - Diandra Ariza Notice Issued Date-Time: 03/11/2019 13:15 Notice Type: IM Discharge Notice Notice Delivered To: Patient Relationship to Patient: Self Supervisor Uranium Processing Name: Delivery Method: HAND - Hand Delivered Marci Days: Prior Verbal Notification: Recipient Understood Notice: Yes Recipient Signature: Yes Med Rec Note Co-signed by Attending: Coverage Notice Comment: DISCHARGE IMM SERVED PATIENT UNDERSTOOD AND VOICED NO QUESTIONS OR CONCERNS. Last DP export: 03/11/19 10:17 am Patient Name: JACKIE DOUGLAS Page [phone] at 0850 All edits/amendments must be made on the electronic document DICTATION DATE: 03/13/1949 CISO: CYDNEY 03/13/19 0849 RPT#: [id number] DC DATE:03/11/19 STATUS: DIS IN [facility] [address] [place] [address] END OF REPORT
== END 2019-03-11 14:39 | disposition home or self-care (01) ==
LOC: D.ER 21:18 → OBSVTIME 23:34 → D.M3 23:34
PROVIDERS: Family Medicine; Radiology Diagnostic Radiology; ADMIT Legal Medicine; ATTEND Legal Medicine
DX: J90 Pleural effusion, not elsewhere classified (principal); C11.1 Malignant neoplasm of posterior wall of nasopharynx; C78.02 Secondary malignant neoplasm of left lung; C78.01 Secondary malignant neoplasm of right lung; C79.51 Secondary malignant neoplasm of bone; D64.9 Anemia, unspecified; D72.819 Decreased white blood cell count, unspecified

== ENCOUNTER 2019-04-27 15:30 | Outpatient (CLI) | payer MEDICARE, MEDICAID ==
[~2019-04-27] VITALS: Ht 167.6 cm; Wt 57.7 kg
[2019-04-27 16:18] VITALS: BP 111/63; Ht 167.6 cm; Wt 57.7 kg
--- NOTE | 2019-04-27 19:52 | NUR ---
2ND UNIT PRBC'S TRANSFUSING WITHOUT DIFFICULTY. TRANSFERRED TO ROOM 2231 DUE TO OUTPATIENT DEPARTMENT CLOSING FOR THE EVENING. PATIENT WITHOUT ANY SIGNS OF TRANSFUSION REACTION AND NO COMPLAINT. REPORT GIVEN TO RECEIVING NURSE, PATIENT TRANSFERRED VIA PERSONAL WHEELCHAIR
--- NOTE | 2019-04-27 19:57 | NUR ---
ARRIVED TO ROOM VIA HOSPITAL STAFF. ASSISTED TO BED WITH SIMPLE COMFORTS OFFERED AND ACCEPTED. WILL NOTE ANY CHANGE.
--- NOTE | 2019-04-27 20:29 | NUR ---
BLOOD INFUSION COMPLETE. WILL OBSERVE FOR 30"
--- NOTE | 2019-04-27 21:16 | NUR ---
VS STABLE, FAMILY HERE TO TRANSPORT HOME, ALL BELONGINGS TAKEN WITH.
[2019-04-27 21:18] VITALS: BP 135/75
== END 2019-04-27 21:21 ==
LOC: D.OPS 15:30 → D.MS 19:53 → D.OPS 21:21
DX: N18.9 Chronic kidney disease, unspecified (principal); D63.1 Anemia in chronic kidney disease; E03.9 Hypothyroidism, unspecified

== ENCOUNTER 2019-05-08 19:29 | Inpatient (IN) | payer MEDICARE ==
[~2019-05-08] VITALS: Ht 167.6 cm; Wt 59.0 kg
[2019-05-08] MEDS ORDERED: LIPITOR10 MG PO (19:34)
[2019-05-08] MEDS ORDERED: CELEBREX200 MG PO (19:34)
[2019-05-08] MEDS ORDERED: FLOVENT HFA 410.6 GM INH (19:35)
[2019-05-08] MEDS ORDERED: FLORINEF 0.1 M0.1 MG PO ×2 (19:35→21:20)
[2019-05-08] MEDS ORDERED: CYMBALTA60 MG PO (19:35)
[2019-05-08] MEDS ORDERED: HYSINGLA ER30 MG PO (19:36)
[2019-05-08] MEDS ORDERED: KLOR-CON 1010 MEQ PO (19:36)
[2019-05-08] MEDS ORDERED: TRAZODONE HCL150 MG PO (19:37)
--- NOTE | 2019-05-08 21:00 | NUR ---
RECIEVED TO FLOOR ACCOMPANIED BY STAFF AND FAMILY. A&O X 4, DENIES PAIN AT THIS TIME, VITAL SIGNS STABLE. FAMILY REPORTS PT HAS BED SORES TO BUTTOCKS. DENIES NEEDS AT THIS TIME, WILL COMPLETE FULL ASSESSMENT WITH RN.
[2019-05-08] MEDS ORDERED: IBUPROFEN600 MG PO (21:12)
[2019-05-08] MEDS ORDERED: GLEEVEC100 MG PO (21:14)
[2019-05-08] MEDS ORDERED: CHLOROTHIAZIDE500 MG PO (21:15)
[2019-05-08] MEDS ORDERED: SALAGEN5 MG PO (21:17)
[2019-05-08] MEDS ORDERED: SINGULAIR10 MG PO (21:18)
[2019-05-08 21:44] LABS: BASOPHILS 0.1 % (0-2); EOSINOPHILS 0 % (0-7); HEMOGLOBIN 11.1 g/dL (12-16); IMMATURE GRANULOCYTES 0.3 % (0-5); MCH 33.2 pg (26.0-34.0); MCHC 30.8 g/dL (31.0-37.0); MCV 107.8 fL (80.0-100.0); MEAN PLATELET VOLUME 12.3 fL (7.4-10.4); MONOCYTES 6.4 % (2-11); NEUTROPHILS 89.2 % (40-80); RBC 3.34 10x6/uL (4.00-5.40); RDW 17.8 % (11.5-14.5); WBC 6.7 10x3/uL (4.8-10.8)
[2019-05-08 22:07] LABS: PLATELET COUNT 151 10x3/uL (130-400)
[2019-05-08 22:17] LABS: ALBUMIN 2.3 g/dL (3.4-5.0); ANION GAP 9.3 mmol/L (8-16); BILIRUBIN - TOTAL 0.3 mg/dL (0.2-1.3); CALCIUM 7.4 mg/dL (8.5-10.1); CARBON DIOXIDE 27.5 mmol/L (21.0-32.0); CREATININE - SERUM 1.9 mg/dL (0.6-1.3); POTASSIUM - SERUM 3.8 mmol/L (3.5-5.1); PROTEIN - SERUM 5.9 g/dL (6.4-8.2)
--- NOTE | 2019-05-08 22:30 | NUR ---
ASSISTED PT INTO CHANGING INTO YELLOW GOWN, NON SLIP SOCKS, AND PLACING JUAN CARLOS ALARM ON BED. PT HAS DIME SIZE SORE TO COCCYX, SRIRAM SIZE TO RIGHT BUTTOCK AND [id number] TO LEFT BUTTOCK. PLACED MEPILEX ON BOTTOM. DENIES OTHER NEEDS AT THIS TIME. CL IN REACH, WILL CTM
[2019-05-09 00:30] VITALS: BP 111/61
[2019-05-09 01:49] VITALS: BMI 21.0
[2019-05-09 04:30] VITALS: BP 124/65
[2019-05-09 08:27] VITALS: BP 125/63
[2019-05-09 08:32] LABS: BASOPHILS 0 % (0-2); EOSINOPHILS 0 % (0-7); HEMATOCRIT 31.6 % (36.0-48.0); HEMOGLOBIN 9.5 g/dL (12-16); IMMATURE GRANULOCYTES 0.2 % (0-5); LYMPHOCYTES 4.8 % (15-50); MCH 32.1 pg (26.0-34.0); MCHC 30.1 g/dL (31.0-37.0); MCV 106.8 fL (80.0-100.0); MEAN PLATELET VOLUME 11.7 fL (7.4-10.4); MONOCYTES 6.5 % (2-11); NEUTROPHILS 88.5 % (40-80); PLATELET COUNT 178 10x3/uL (130-400); RBC 2.96 10x6/uL (4.00-5.40); RDW 17.6 % (11.5-14.5); WBC 5.4 10x3/uL (4.8-10.8)
--- NOTE | 2019-05-09 09:00 | NUR ---
ASSESSMENT PER FLOW SHEET. PT IS SLEEPING.FAMILY AT BEDSIDE.CALL LIGHT IN REACH.SONYA ON UNIT TO SEE PT,SEE ORDERS.
[2019-05-09 09:06] LABS: ALBUMIN 2.2 g/dL (3.4-5.0); ANION GAP 10.3 mmol/L (8-16); BILIRUBIN - TOTAL 0.26 mg/dL (0.2-1.3); CALCIUM 7.5 mg/dL (8.5-10.1); CARBON DIOXIDE 29.4 mmol/L (21.0-32.0); CREATININE - SERUM 1.7 mg/dL (0.6-1.3); POTASSIUM - SERUM 3.7 mmol/L (3.5-5.1); PROTEIN - SERUM 5.5 g/dL (6.4-8.2)
[2019-05-09 09:59] LABS: APTT 27.6 SECONDS (22.8-39.4); INR 1.13 (0.85-1.17)
[2019-05-09 12:18] VITALS: BP 139/70
--- NOTE | 2019-05-09 12:31 | NUR ---
WAITING ON PLASMA- LYTE FROM PHARMACY,SPOKE WITH
[2019-05-09 13:33] VITALS: Ht 167.6 cm; Wt 59.0 kg
--- NOTE | 2019-05-09 13:34 | MORECARE ---
CASE MANAGEMENT DISCHARGE SUMMARY PATIENT: JACKIE BRANHAM UNIT: [id number] ADM DATE: 05/08/19 AGE: 58 : 60 SEX: F ROOM/BED: D.2226 AUTHOR: DANIEL BATISTA PHYSICIAN: REFERRING PHYSICIAN: SUZIE BAUTISTA MD DATE OF SERVICE: 05/09/19 Discharge Plan Patient Name: JACKIE BRANHAM Facility: [facility]:[place] : 1960 Planned Disposition: Anticipated Discharge Date: Discharge Date: Expected LOS: Initial Reviewer: [email or web address] Initial Review Date: 05/09/2019 Generated: 05/09/19 2:34 pm DCPIA - Discharge Planning Initial Assessment Updated by [email or web address]: Flavia Palmer on 05/09/19 1:31 pm * PCP Sal * Pharmacy [facility] in [place] * Preadmission Environment Home with Family * ADLs Total Dependent * Equipment Other Oxygen * Other Equipment Portable oxygen * List name and contact numbers for known caregivers / representatives who currently or will assist patient after discharge: Berry Branham - [phone] * Verbal permission to speak to the caregivers and representatives has been obtained from the patient. Yes * Community resources currently utilized None * Additional services required to return to the preadmission environment? Yes * Can the patient safely return to the preadmission environment? Yes * Has this patient been hospitalized within the prior 30 days at any hospital? No External Providers [facility] [facility] Next Contact Date: Service Request Date: Service Type: Resolution: Reviewer: Comments: External Provider: [facility] [facility] in Next Contact Date: Service Request Date: Service Type: Resolution: Reviewer: Comments: Patient Name: JACKIE BRANHAM Page [phone] at 1334 All edits/amendments must be made on the electronic document DICTATION DATE: 05/09/19 1334 SUPERVISOR BRAIDING: CYDNEY 05/09/19 1334 RPT#: [id number] DC DATE: STATUS: ADM IN [facility] [address] [facility] [place] [address] END OF REPORT
--- NOTE | 2019-05-09 13:42 | MORECARE ---
CASE MANAGEMENT DISCHARGE SUMMARY PATIENT: JACKIE BRANHAM UNIT: [id number] ADM DATE: 05/08/19 AGE: 58 : 60 SEX: F ROOM/BED: D.2226 AUTHOR: [email or web address] PHYSICIAN: REFERRING PHYSICIAN: SUZIE BAUTISTA MD DATE OF SERVICE: 05/09/19 Discharge Plan Patient Name: JACKIE BRANHAM Facility: [facility]:[place] : 1960 Planned Disposition: Anticipated Discharge Date: Discharge Date: Expected LOS: Initial Reviewer: [email or web address] Initial Review Date: 05/09/2019 Generated: 05/09/19 2:42 pm Comments DCP- Discharge Planning Updated by [email or web address]: Flavia Palmer on 05/09/19 12:[address] Patient Name: JACKIE BRANHAM Admission Status: ER Accout number: [id number] Admission Date: 05-08-2019 : 1960 Admission Diagnosis: Attending: SUZIE BAUTISTA Current LOS: 1 Anticipated DC Date: Planned Disposition: Primary Insurance: [facility] MEDICARE SOLUTIONS Discharge Planning Comments: CM met with per his request. He states that his is living with her mother and 20 year old daughter at [address] [place] [address] in [place] States that Dr. Bautista has been speaking with them about hospice consult and they states they are ready to speak with someone. I discussed the different hospice options, they would like to speak with [facility] since they have the contract with the hospital and would like her here, also her PCP is Dr. Bautista. I called Andrews with [facility] and clinical faxed. Andrews is here now to speak with the family and the patient. CM will continue to follow and assist with discharge planning/needs. Watcher [place]: Flavia Palmer DCPIA - Discharge Planning Initial Assessment Updated by [email or web address]: Flavia Palmer on 05/09/19 1:31 pm * PCP Sal * Pharmacy [facility] in [place] * Preadmission Environment Home with Family * ADLs Total Dependent * Equipment Other Oxygen * Other Equipment Portable oxygen * List name and contact numbers for known caregivers / representatives who currently or will assist patient after discharge: Berry Branham - [phone] * Verbal permission to speak to the caregivers and representatives has been obtained from the patient. Yes * Community resources currently utilized None * Additional services required to return to the preadmission environment? Yes * Can the patient safely return to the preadmission environment? Yes * Has this patient been hospitalized within the prior 30 days at any hospital? No Coverage Notice Reviewer: [email or web address] Cielo Palmer Notice Issued Date-Time: 05/09/2019 13:37 Notice Type: Patient Choice Letter Notice Delivered To: Family Member Relationship to Patient: Spouse Pattern Chain Maker Supervisor Name: Berry Branham Delivery Method: HAND - Hand Delivered Marci Days: Prior Verbal Notification: Recipient Understood Notice: Yes Recipient Signature: Yes Med Rec Note Co-signed by Attending: Coverage Notice Comment: ALTHEA for Tristin [facility] Last DP export: 05/09/19 12:34 p Patient Name: JACKIE BRANHAM Page [phone] at 1342 All edits/amendments must be made on the electronic document DICTATION DATE: 05/09/19 1342 ART GILDER: CYDNEY 05/09/19 1342 RPT#: [id number] DC DATE: STATUS: ADM IN [facility] [address] [place] [address] END OF REPORT
--- NOTE | 2019-05-09 14:00 | NUR ---
PT HAS INCREASED RESP EFFORT AND IS BECOMING LETHARGIC.CALL TO SONYA JHA APN
[2019-05-09 17:14] VITALS: BP 100/50
--- NOTE | 2019-05-11 09:27 | MORECARE ---
CASE MANAGEMENT DISCHARGE SUMMARY PATIENT: JACKIE BRANHAM UNIT: [id number] ADM DATE: 05/08/19 AGE: 58 : 60 SEX: F ROOM/BED: D.2240 AUTHOR: [email or web address] PHYSICIAN: REFERRING PHYSICIAN: SUZIE BAUTISTA MD DATE OF SERVICE: 05/11/19 Discharge Plan Patient Name: JACKIE BRANHAM Facility: [facility]:[place] : 1960 Planned Disposition: Hospice Medical Facility Anticipated Discharge Date: Discharge Date: 05/09/2019 Expected LOS: 0 Initial Reviewer: [id number] Initial Review Date: 05/09/2019 Generated: 05/11/19 10:27 am DCP- Discharge Planning Updated by [email or web address]: Flavia Palmer on 05/09/19 12:[address] Patient Name: JACKIE BRANHAM Admission Status: ER Accout number: [id number] Admission Date: 05-08-2019 : 1960 Admission Diagnosis: Attending: SUZIE BAUTISTA Current LOS: 1 Anticipated DC Date: Planned Disposition: Primary Insurance: [facility] [employer] Discharge Planning Comments: CM met with per his request. He states that his is living with her mother and 20 year old daughter at [address] [place] [address] in [place] States that Dr. Bautista has been speaking with them about hospice consult and they states they are ready to speak with someone. I discussed the different hospice options, they would like to speak with [facility] since they have the contract with the hospital and would like her here, also her PCP is Dr. Bautista. I called Andrews with [facility] and clinical faxed. Andrews is here now to speak with the family and the patient. CM will continue to follow and assist with discharge planning/needs. Gymnastics Coach: Flavia Palmer DCPIA - Discharge Planning Initial Assessment Updated by [email or web address]: Flavia Palmer on 05/09/19 1:31 pm * PCP Sal * Pharmacy [facility] in [place] * Preadmission Environment Home with Family * ADLs Total Dependent * Equipment Other Oxygen * Other Equipment Portable oxygen * List name and contact numbers for known caregivers / representatives who currently or will assist patient after discharge: Berry Branham - [phone] * Verbal permission to speak to the caregivers and representatives has been obtained from the patient. Yes * Community resources currently utilized None * Additional services required to return to the preadmission environment? Yes * Can the patient safely return to the preadmission environment? Yes * Has this patient been hospitalized within the prior 30 days at any hospital? No Coverage Notice Reviewer: [email or web address] Cielo Palmer Notice Issued Date-Time: 05/09/2019 13:37 Notice Type: Patient Choice Letter Notice Delivered To: Family Member Relationship to Patient: Spouse Strings Teacher Name: Berry Branham Delivery Method: HAND - Hand Delivered Marci Days: Prior Verbal Notification: Recipient Understood Notice: Yes Recipient Signature: Yes Med Rec Note Co-signed by Attending: Coverage Notice Comment: ALTHEA for [facility] CLAUDIO Last DP export: 05/09/19 12:42 p Patient Name: JACKIE BRANHAM Page [id number] at 0927 All edits/amendments must be made on the electronic document DICTATION DATE: 05/11/19926 BAND TACKER: CYDNEY 05/11/19926 RPT#: [id number] DC DATE:05/09/19 STATUS: DIS IN [facility] [address] [place] [address] END OF REPORT
== END 2019-05-09 17:59 | disposition hospice, inpatient (51) | DRG 180 ==
LOC: D.ER 19:29 → D.MS 19:57
PROVIDERS: Family Medicine; General Practice; ADMIT Legal Medicine; ATTEND Legal Medicine
DX: C34.90 Malignant neoplasm of unspecified part of unspecified bronchus or lung (principal); J96.01 Acute respiratory failure with hypoxia; J18.9 Pneumonia, unspecified organism; E43 Unspecified severe protein-calorie malnutrition; N17.9 Acute kidney failure, unspecified; C79.51 Secondary malignant neoplasm of bone; J91.8 Pleural effusion in other conditions classified elsewhere; E87.0 Hyperosmolality and hypernatremia; R62.7 Adult failure to thrive; Z68.21 Body mass index [BMI] 21.0-21.9, adult; R13.10 Dysphagia, unspecified; D63.8 Anemia in other chronic diseases classified elsewhere; E11.9 Type 2 diabetes mellitus without complications; I10 Essential (primary) hypertension; Z68.20 Body mass index [BMI] 20.0-20.9, adult

== ENCOUNTER 2019-05-09 18:23 | Inpatient (IN) | payer OTHER ==
[~2019-05-09] VITALS: Ht 167.6 cm; Wt 59.1 kg
[~2019-05-09 18:23] MED LIST changes: +CELEBREX200 MG PO; +CHLOROTHIAZIDE500 MG PO; +CYMBALTA60 MG PO; +FLORINEF 0.1 M0.1 MG PO; +FLOVENT HFA 410.6 GM INH; +GLEEVEC100 MG PO; +HYSINGLA ER30 MG PO; +IBUPROFEN600 MG PO; +KLOR-CON 1010 MEQ PO; +LIPITOR10 MG PO; +SALAGEN5 MG PO; +TRAZODONE HCL150 MG PO
[2019-05-09 19:20] VITALS: BP 100/50; BMI 21.0
[2019-05-09 19:30] VITALS: BP 90/46
--- NOTE | 2019-05-09 23:47 | NUR ---
hospice in progress.family at bedside shallow 10/breaths per min.will continue to monitor for any further chges and follow current plan of care.2154 hospice here cindy scales rn. no breaths or pulse or heart rate.2209 pronounced by cindy monroe.as well as notifing [facility] per family request.230 cheek notified.does not meet criteria.2340 [facility] here rec'd body for [facility]
[2019-05-10 07:41] VITALS: Ht 167.6 cm; Wt 59.1 kg
--- NOTE | 2019-05-11 09:28 | MORECARE ---
CASE MANAGEMENT DISCHARGE SUMMARY PATIENT: JACKIE DOUGLAS UNIT: [id number] ADM DATE: 05/09/19 AGE: 58 : 60 SEX: F ROOM/BED: D.2240 AUTHOR: DANIEL BATISTA PHYSICIAN: REFERRING PHYSICIAN: SUZIE BAUTISTA MD DATE OF SERVICE: 05/11/19 Discharge Plan Patient Name: JACKIE DOUGLAS Facility: [facility]:[place] : 1960 Planned Disposition: Anticipated Discharge Date: Discharge Date: 05/09/2019 Expected LOS: 0 Initial Reviewer: [email or web address] Initial Review Date: 05/11/2019 Generated: 05/11/19 10:28 am Patient Name: JACKIE DOUGLAS Page [id number] at 0928 All edits/amendments must be made on the electronic document DICTATION DATE: 05/11/19927 VEGETABLE VENDOR: CYDNEY 05/11/19927 RPT#: [id number] DC DATE:05/09/19 STATUS: DIS IN [facility] [address] [place] [address] END OF REPORT
== END 2019-05-09 22:10 | DRG 951 ==
LOC: D.MS 18:23
PROVIDERS: ADMIT Legal Medicine; ATTEND Legal Medicine
DX: Z51.5 Encounter for palliative care (principal)